=== PATIENT | male | born 1940 | race Caucasian/White ===

== ENCOUNTER 2019-03-19 16:53 | Inpatient (IN) | payer MEDICARE, MEDICAID ==
[~2019-03-19] VITALS: Ht 185.5 cm; Wt 78.5 kg
[2019-03-19 17:30] LABS: HEMATOCRIT 41 % (40-54); HEMOGLOBIN 13.7 G/DL (13.3-17.7); MEAN CORPUSCULAR HEMOGLOBIN 32 PG (25-34); MEAN CORPUSCULAR HGB CONC 33 G/DL (32-36); MEAN CORPUSCULAR VOLUME 95 FL (80-99); WHITE BLOOD COUNT 21.7 10^3/uL (4.3-11.0)
[2019-03-19 17:31] LABS: BASOPHILS % (AUTO) 0 % (0-10); EOSINOPHILS % (AUTO) 0 % (0-10); LYMPHOCYTES # (AUTO) 0.7 X 10^3 (1.0-4.0); LYMPHOCYTES % (AUTO) 3 % (12-44); MEAN PLATELET VOLUME 12.5 FL (7.4-10.4); MONOCYTES # (AUTO) 1.2 X 10^3 (0.0-1.0); MONOCYTES % (AUTO) 5 % (0-12); NEUTROPHILS # (AUTO) 19.6 X 10^3 (1.8-7.8); NEUTROPHILS % (AUTO) 90 % (42-75); PLATELET COUNT 214 10^3/uL (130-400); RED CELL DISTRIBUTION WIDTH 14.1 % (10.0-14.5)
[2019-03-19 17:39] LABS: BACTERIA,URINE LARGE /HPF; BILIRUBIN,URINE 2+ (NEGATIVE); CLARITY,URINE TURBID; COLOR,URINE BROWN; GLUCOSE, URINE (UA) NEGATIVE (NEGATIVE); KETONES,URINE 1+ (NEGATIVE); LEUKOCYTE ESTERASE ,URINE 2+ (NEGATIVE); NITRITE,URINE POSITIVE (NEGATIVE); PROTEIN,URINE 3+ (NEGATIVE); RBC,URINE TNTC /HPF; WBC,URINE TNTC /HPF
[2019-03-19 17:42] LABS: ALANINE AMINOTRANSFERASE 24 U/L (0-55); ALBUMIN 3.3 GM/DL (3.2-4.5); ALKALINE PHOSPHATASE 112 U/L (40-136); BILIRUBIN,TOTAL 1.1 MG/DL (0.1-1.0); BUN/CREATININE RATIO 32; CALCIUM 9.9 MG/DL (8.5-10.1); CARBON DIOXIDE 22 MMOL/L (21-32); CHLORIDE 106 MMOL/L (98-107); CREATININE SERUM 1.49 MG/DL (0.60-1.30); GFR ESTIMATED 46; GLUCOSE 166 MG/DL (70-105); POTASSIUM 4.7 MMOL/L (3.6-5.0); SODIUM 145 MMOL/L (135-145); TOTAL PROTEIN 7.4 GM/DL (6.4-8.2)
--- NOTE | 2019-03-19 17:43 | NUR ---
Received critical Lactic Acid to RN from lab, 2.41.
--- NOTE | 2019-03-19 17:52 | NUR ---
Reported Lactic Acid to Dr Rowell who is now available out of a procedure. Plan discussed.
--- NOTE | 2019-03-19 17:55 | NUR ---
Return from CT, plan blood culture #2 and meds.
[2019-03-19] MEDS ORDERED: CIPROFLOXACIN IV 400MG/200ML 200 ML IV ONE (18:00)
[2019-03-19] MEDS ORDERED: NS IV 1000 ML 1,000 ML IV SCH ×2 (18:00→19:00)
--- NOTE | 2019-03-19 18:00 | NUR ---
Peripheral IV start to R FA with 20 ga, Blood Culture set #2 drawn and handed off to Harsh from lab present in room. Explained blood culture draws to and contributed the WBC elevation with Lactic Acid elevation. Pt also with urinary infection. Pt continues to rest with eyes closed, occas moans or sighs, non-communication. has ordered IV fluids and Cipro.
--- NOTE | 2019-03-19 18:03 | Diagnostic Imaging Report ---
PROCEDURE: CT head without contrast. TECHNIQUE: Multiple contiguous axial images were obtained through the brain without the use of intravenous contrast. Auto Exposure Controls were utilized during the CT exam to meet ALARA standards for radiation dose reduction. INDICATION: Dementia. Altered mental status. COMPARISON: None. FINDINGS: No large acute territorial ischemia, mass, or hemorrhage. Chronic microvascular disease is seen in the periventricular and subcortical white matter. The ventricles and cortical sulci are prominent, consistent with generalized volume loss. The basilar cisterns are patent and unremarkable. The calvarium is intact. The visualized paranasal sinuses are clear. IMPRESSION: 1. No large acute territorial ischemia, mass, or hemorrhage. 2. Chronic microvascular disease. 3. Generalized volume loss. Dictated by: Dictated on workstation # [id number]
--- NOTE | 2019-03-19 18:05 | Diagnostic Imaging Report ---
PATIENT HISTORY: Altered mental status. Dementia.. TECHNIQUE: Single frontal view of the chest COMPARISON: None. FINDINGS: No focal consolidation is seen. Left basilar opacities are present. No large pleural effusion or pneumothorax is seen. The cardiomediastinal silhouette is enlarged. There is calcified aortic atherosclerotic plaque. No acute osseous abnormality is seen. IMPRESSION: 1. Cardiomegaly. No overt pulmonary edema. 2. Left basilar opacities, likely representing atelectasis and/or infection. Dictated by: Dictated on workstation # [id number]
[2019-03-19 18:10] LABS: BAND NEUTROPHILS 7 %; BASOPHILS % (MANUAL) 0 %; EOSINOPHILS % (MANUAL) 0 %; LYMPHOCYTES % (MANUAL) 3 %; MONOCYTES % (MANUAL) 1 %; NEUTROPHILS % (MANUAL) 89 %; RBC MORPH NORMAL
--- NOTE | 2019-03-19 18:31 | ED General ---
General Chief Complaint: Altered Mental Status Stated Complaint: BLOOD IN URINE History of Present Illness Date Seen by Provider: Mar 19, 2019 Time Seen by Provider: 18:26 Initial Comments 78-year-old male who is rather debilitated has dementia and is a DO NOT RESUSCITATE He lives in a small nursing facility called [facility] according to his reportedly he became less responsive than normal yesterday today it became obvious that he was really not responsive or communicating at all he was noted to have blood in his urine no known fever never any vomiting or diarrhea never any specific complaints never any appearance that he was in pain or sob Allergies and Home Medications Allergies Coded Allergies: No Known Drug Allergies (Unverified , 03/19/19) Patient Home Medication List Home Medication List Reviewed: Yes Review of Systems Review of Systems Constitutional: No fever Respiratory: no symptoms reported Cardiovascular: no symptoms reported Genitourinary: hematuria Musculoskeletal: no symptoms reported Physical Exam Vital Signs Capillary Refill : Height, Weight, BMI Height: '" Weight: lbs. oz. kg; BMI Method: General Appearance: No Apparent Distress, Other (pt is non-communicative does not follow commands) Eyes: Bilateral Eye PERRL HEENT: Other (mucosa dry) Neck: Supple Respiratory: Lungs Clear, Normal Breath Sounds Cardiovascular: Irregularly Irregular, Tachycardia Gastrointestinal: Normal Bowel Sounds, Non Tender Neurologic/Psychiatric: No Motor/Sensory Deficits, outside plant engineer II-XII Norm as Tested Focused Exam Lactate Level 03/19/19 17:04: Lactic Acid Level 2.41*H Lactic Acid Level Laboratory Tests Test 03/19/19 17:04 Lactic Acid Level 2.41 MMOL/L (0.50-2.00) *H Progress/Results/Core Measures Suspected Sepsis SIRS Temperature: Pulse: Respiratory Rate: Laboratory Tests 03/19/19 17:04: White Blood Count 21.7H Blood Pressure / Mean: 03/19/19 17:04: Lactic Acid Level 2.41*H Laboratory Tests 03/19/19 17:04: Creatinine 1.49H, Platelet Count 214, Total Bilirubin 1.1H Results/Orders Lab Results Laboratory Tests Test 03/19/19 17:04 03/19/19 17:18 Range/Units White Blood Count 21.7 H 4.3-11.0 10^3/uL Red Blood Count 4.33 L 4.35-5.85 10^6/uL Hemoglobin 13.7 13.3-17.7 G/DL Hematocrit 41 40-54 % Mean Corpuscular Volume 95 80-99 FL Mean Corpuscular Hemoglobin 32 25-34 PG Mean Corpuscular Hemoglobin Concent 33 32-36 G/DL Red Cell Distribution Width 14.1 10.0-14.5 % Platelet Count 214 130-400 10^3/uL Mean Platelet Volume 12.5 H 7.4-10.4 FL Neutrophils (%) (Auto) 90 H 42-75 % Lymphocytes (%) (Auto) 3 L 12-44 % Monocytes (%) (Auto) 5 0-12 % Eosinophils (%) (Auto) 0 0-10 % Basophils (%) (Auto) 0 0-10 % Neutrophils # (Auto) 19.6 H 1.8-7.8 X 10^3 Lymphocytes # (Auto) 0.7 L 1.0-4.0 X 10^3 Monocytes # (Auto) 1.2 H 0.0-1.0 X 10^3 Eosinophils # (Auto) 0.0 0.0-0.3 10^3/uL Basophils # (Auto) 0.0 0.0-0.1 10^3/uL Neutrophils % (Manual) 89 % Lymphocytes % (Manual) 3 % Monocytes % (Manual) 1 % Eosinophils % (Manual) 0 % Basophils % (Manual) 0 % Band Neutrophils 7 % Blood Morphology Comment NORMAL Sodium Level 145 135-145 MMOL/L Potassium Level 4.7 3.6-5.0 MMOL/L Chloride Level 106 98-107 MMOL/L Carbon Dioxide Level 22 21-32 MMOL/L Anion Gap 17 H 5-14 MMOL/L Blood Urea Nitrogen 47 H 7-18 MG/DL Creatinine 1.49 H 0.60-1.30 MG/DL Estimat Glomerular Filtration Rate 46 BUN/Creatinine Ratio 32 Glucose Level 166 H 70-105 MG/DL Lactic Acid Level 2.41 *H 0.50-2.00 MMOL/L Calcium Level 9.9 8.5-10.1 MG/DL Corrected Calcium 10.5 H 8.5-10.1 MG/DL Total Bilirubin 1.1 H 0.1-1.0 MG/DL Aspartate Amino Transf (AST/SGOT) 26 5-34 U/L Alanine Aminotransferase (ALT/SGPT) 24 0-55 U/L Alkaline Phosphatase 112 40-136 U/L Total Protein 7.4 6.4-8.2 GM/DL Albumin 3.3 3.2-4.5 GM/DL Urine Color BROWN H Urine Clarity TURBID Urine pH 7.0 5-9 Urine Specific [place] 1.020 1.016-1.022 Urine Protein 3+ H NEGATIVE Urine Glucose (UA) NEGATIVE NEGATIVE Urine Ketones 1+ H NEGATIVE Urine Nitrite POSITIVE H NEGATIVE Urine Bilirubin 2+ H NEGATIVE Urine Urobilinogen >=8.0 < = 1.0 MG/DL Urine Leukocyte Esterase 2+ H NEGATIVE Urine RBC (Auto) 3+ H NEGATIVE Urine RBC TNTC H /HPF Urine WBC TNTC H /HPF Urine Crystals NONE /LPF Urine Bacteria LARGE H /HPF Urine Casts NONE /LPF Urine Mucus NEGATIVE /LPF Urine Culture Indicated YES My Orders Orders - PHILOMENA SWANSON MD Iv Heplock-Insert (Order) (03/19/19 17:13) Cbc With Automated Diff (03/19/19 17:13) Blood Culture (03/19/19 17:13) Lactic Acid Analyzer (03/19/19 17:13) Comprehensive Metabolic Panel (03/19/19 17:13) Urinalysis (03/19/19 17:13) Straight Cath For Spec.-Adult (03/19/19 17:13) Ekg Tracing (03/19/19 17:13) Chest 1 View Ap/Pa Only (03/19/19 17:13) Valproic Acid (03/19/19 17:13) Ct Head Wo (03/19/19 17:13) Manual Differential (03/19/19 17:04) Urine Culture (03/19/19 17:18) Ns Iv 1000 Ml (Sodium Chloride 0.9%) (03/19/19 18:00) Ciprofloxacin Iv 400mg/200ml (Cipro Iv S (03/19/19 18:00) Blood Culture (03/19/19 18:00) Medications Given in ED Current Medications Medications Dose Ordered Sig/Cristina Route Start Time Stop Time Status Last Admin Dose Admin Ciprofloxacin/ Dextrose 200 ml @ 200 mls/hr ONCE ONCE IV 03/19/19 18:00 03/19/19 18:59 03/19/19 18:07 200 MLS/HR Vital Signs/I&O Capillary Refill : Progress Note : Progress Note Chest x-ray shows cardiomegaly and some basilar atelectasis CT head nothing acute hemoglobin is 13 7 white count 21,700 with 90 segs BUN 47 creatinine 1.49 glucose 166 lactate is 2.4 UA shows large amount of bacteria too numerous to count red cells and white cells 2+ leukocyte esterase and positive nitrite pt maintains a pulse rate in the 110s after IV fluids blood pressure 120/64 respirations 20s with a 97% on room air remains afebrile ECG Comment EKG shows atrial fib with a rate of about 120 not new for this patient he just takes baby aspirin daily No acute ST changes Departure Impression Primary Impression: Sepsis Qualified Codes: A41.9 - Sepsis, unspecified organism Additional Impressions: UTI (urinary tract infection) Qualified Codes: N39.0 - Urinary tract infection, site not specified; R31.9 - Hematuria, unspecified Atrial fibrillation, chronic Disposition: ADMITTED INPATIENT Condition: Stable Admissions Decision to Admit Reason: Admit from ER (General) Decision to Admit/Date: Mar 19, 2019 Time/Decision to Admit Time: 18:46 Departure-Patient Inst. Referrals: CACHORRO ARENAS DO (PCP/Family) Primary Care Physician PHILOMENA SWANSON MD Mar 19, 2019 18:31 POS
--- NOTE | 2019-03-19 18:58 | NUR ---
Called Tubing Tester Sue for bed assignment.
[2019-03-19] MEDS ORDERED: cefTRIAXone FOR IV USE 1,000 MG in WATER (STERILE) FOR INJECTION 10 ML IV ONE (19:00)
--- NOTE | 2019-03-19 19:15 | NUR ---
Report to Gely GARCIA.
[2019-03-19] MEDS ORDERED: NS IV 1000 ML 1,000 ML IV ONE (19:53)
--- NOTE | 2019-03-19 20:00 | NUR ---
RECEIVED REPORT FROM BHARAT GARCIA FROM ED. BHARAT REPORTED THAT EMS WAS GETTING READY TO TRANSPORT PT AT THAT TIME.
[2019-03-19 21:25] VITALS: BP 90/61
--- NOTE | 2019-03-19 21:25 | NUR ---
COLTEN COELLO admitted to room 426-1, with an admitting diagnosis of UROSEPSIS AND CHRONIS AFIB, on 03/19/19 from ED via [facility], accompanied by [facility].COLTEN COELLO introduced to surroundings, call light, bed controls, phone, TV, temperature control, lights, meal times, smoking policy, visitor policy, side rail policy, bathrooms and showers. Patient Rights given to patient in the handbook. COLTEN COELLO , TAYLER, verbalizes understanding that [facility] is not responsible for the loss or damage to any personal effects or valuables that are kept in the patients posession during their hospitalization. Patient and/or family were informed about the Rapid Response Team and its purpose.
[2019-03-19] MEDS: NS IV 1000 ML 1,000 ML IV SCH (21:45)
[2019-03-19 23:24] LABS: VALPROIC ACID < 2.0 UG/ML (50.0-100.0)
[2019-03-19] MEDS ORDERED: RT-ALBUTEROL SULF 2.5 MG/3 ML PRE-MIX VIAL INH PRN (23:45)
[2019-03-20 00:55] VITALS: BP 122/71
[2019-03-20 03:30] VITALS: BP 109/69
[2019-03-20 08:00] VITALS: BP 112/61
[2019-03-20] MEDS: NS IV 1000 ML 1,000 ML IV SCH ×2 (08:46→16:20)
[2019-03-20] MEDS ORDERED: ACETAMINOPHEN 325 MG TABLET PO PRN (10:45)
[2019-03-20] MEDS ORDERED: ANTACID SUSP 30 ML UDC (MYLANTA) PO PRN (10:45)
[2019-03-20] MEDS ORDERED: MILK OF MAGNESIA 400 MG/5 ML 30 ML UDC PO PRN (10:45)
[2019-03-20] MEDS ORDERED: LACTULOSE SYRUP 10GM/15ML (ENULOSE) 30ML UDC PO PRN (10:45)
[2019-03-20] MEDS ORDERED: BISACODYL 10 MG SUPP (DULCOLAX) PR PRN (10:45)
[2019-03-20] MEDS ORDERED: ONDANSETRON 4 MG/2 ML (SDV) Z0FRAN IV PRN (10:45)
[2019-03-20] MEDS ORDERED: POLYETHYLENE GLYCOL 17 GM (MIRALAX) PACK PO PRN (10:45)
[2019-03-20 11:11] LABS: HEMOGLOBIN 11.8 G/DL (13.3-17.7); MEAN PLATELET VOLUME 12.3 FL (7.4-10.4); RED CELL DISTRIBUTION WIDTH 14.7 % (10.0-14.5); WHITE BLOOD COUNT 17.2 10^3/uL (4.3-11.0)
--- NOTE | 2019-03-20 11:27 | History & Physical-Hospitalist ---
History of Present Illness HPI/Chief Complaint Pt is a 78yoCM with a PMH of advanced dementia who presented to the ER due to decreased responsiveness and bloody urine. He is unable to provide any history due to his dementia so all history is obtained from the records and his . She states that yesterday they noticed he was less responsive than his normal (oriented to person and mostly drowsy) and his urine was bloody and foul- smelling. This prompted them to taken to the emergency room where he was found to have a urinary tract infection with a leukocytosis of 24 and an elevated lactic acid. He was admitted for severe sepsis secondary to UTI. This morning he awakens only to physical stimuli and he nodded though I'm not sure if it was appropriate. He states he is still quite off from his baseline. Source: patient Date Seen 03/20/19 Time Seen by a Provider: 11:22 Attending Physician Liberty Galindo MD PCP Sean Bess DO Referring Physician Date of Admission Mar 19, 2019 at 7:37 pm Home Medications & Allergies Home Medications Reviewed patient Home Medication Reconciliation performed by pharmacy medication reconciliations sound effects technician and/or nursing. Patients Allergies have been reviewed. Allergies Allergies Coded Allergies No Known Drug Allergies (Wgjmblqehz04/9/19) Past Bwegoqs-Wkjhyv-Uxbhnt Hx Past Med/Social Hx: Reviewed Nursing Past Med/Soc Hx Patient Social History Marrital Status: Employed/Student: retired Alcohol Use: Denies Use Recreational Drug Use: No Smoking Status: Unknown if Ever Smoked Recent Foreign Travel: No (PT answered question) Contact w/other who traveled: No (PT answered question) Recent Hopitalizations: No Recent Infectious Disease Expo: No (PT answered question) Immunizations Up To Date Date of Pneumonia Vaccine: May 19, 2018 Date of Influenza Vaccine: Mar 11, 2019 Seasonal Allergies Seasonal Allergies: No Past Medical History Surgeries: Prostatectomy Cardiac: Atrial Fibrillation Neurological: Dementia Gastrointestinal: Chronic Constipation Endocrine: Hypothyroidsim Cancer: Prostate History of Blood Disorders: No Family History Reviewed Nursing Family Hx Review of Systems ROS-Unable to Obtain: clincal condition Constitutional: see HPI Physical Exam Physical Exam Vital Signs Vital Signs - First Documented 03/19/19 16:53 Temp 36.4 Pulse 115 Resp 24 B/P (MAP) 123/64 (83) Pulse Ox 96 O2 Delivery Room Air Capillary Refill : Less Than 3 Seconds Height, Weight, BMI Height: '" Weight: lbs. oz. kg; 21.65 BMI Method: General Appearance: No Apparent Distress, Chronically ill HEENT: Moist Mucous Membranes; No Scleral Icterus (L), No Scleral Icterus (R); Other Neck: Supple; No Thyromegaly Respiratory: Lungs Clear, No Accessory Muscle Use, No Respiratory Distress Cardiovascular: No Murmur, Irregularly Irregular Gastrointestinal: Normal Bowel Sounds, Non Tender, Soft Extremity: No Calf Tenderness, No Pedal Edema Neurologic/Psychiatric: Other (arouses to physical stimuli, otherwise quite sedate and sleepy soundly) Skin: Normal Color, Warm/Dry Results Results/Procedures Labs Laboratory Tests 03/19/19 17:04 03/20/19 11:05 Patient resulted labs reviewed. Imaging: Reviewed Imaging Films, Reviewed Imaging Report Assessment/Plan Admission Diagnosis Severe Sepsis Admission Status: Inpatient Order (span 2 midnights) Reason for Inpatient Admission: see admission dx Assessment and Plan Severe sepsis Present on admission UA consistent with UTI tachycardia with leukocytosis Lactic acid elevated on arrival Continue Rocephin Await cultures A-fib HTN tachycardiac on arrival but due to sepsis improved Resume home meds BP low to normotensive so hold home BP meds as to not bottom him out Advanced Dementia Baseline oriented to person only and states that is starting to go Palliative care consult Hypothyroidism Reported in history but no supplementation in fill history Will check TSH Diagnosis/Problems Diagnosis/Problems (1) Severe sepsis Status: Acute (2) Advanced dementia Status: Chronic (3) HTN (hypertension) Status: Chronic Qualifiers: Hypertension type: essential hypertension Qualified Codes: I10 - Essential (primary) hypertension (4) Atrial fibrillation, chronic Status: Chronic (5) UTI (urinary tract infection) Status: Acute Qualifiers: Urinary tract infection type: site unspecified Hematuria presence: with hematuria Qualified Codes: N39.0 - Urinary tract infection, site not specified; R31.9 - Hematuria, unspecified Clinical Quality Measures DVT/VTE Risk/Contraindication: Risk Factor Score Per Nursin RFS Level Per Nursing on Admit: 4+=Very High Copy Copies To 1: SEAN BESS KATELYN M MD Mar 20, 2019 11:26 am POS
[2019-03-20 11:44] LABS: BUN/CREATININE RATIO 41; CALCIUM 9.2 MG/DL (8.5-10.1); CARBON DIOXIDE 19 MMOL/L (21-32); CHLORIDE 115 MMOL/L (98-107); CREATININE SERUM 1.16 MG/DL (0.60-1.30); GFR ESTIMATED > 60; GLUCOSE 111 MG/DL (70-105); POTASSIUM 3.8 MMOL/L (3.6-5.0); SODIUM 146 MMOL/L (135-145)
[2019-03-20 12:00] VITALS: BP 127/81
[2019-03-20] MEDS: ENOXAPARIN 40 MG/0.4 ML (LOVENOX) SYR SQ SCH (12:37)
[2019-03-20 15:40] VITALS: BP 118/77
[2019-03-20] MEDS: 1/2 NS IV SOLUTION 1,000 ML IV SCH (19:00)
[2019-03-20 19:38] VITALS: BP 121/90
[2019-03-20] MEDS: MIRTAZAPINE 15 MG (REMERON) TAB PO SCH (21:04)
[2019-03-20] MEDS: risperiDONE 0.25 MG (RisperDAL) TAB PO SCH (21:04)
[2019-03-20] MEDS: cefTRIAXone FOR IV USE 1,000 MG in WATER (STERILE) FOR INJECTION 10 ML IV SCH (21:10)
[2019-03-21] VITALS (7 sets, daily range): BP systolic 106–122; BP diastolic 60–89
[2019-03-21] MEDS: NS IV 1000 ML 1,000 ML IV SCH (03:45)
[2019-03-21 05:51] LABS: HEMOGLOBIN 12.1 G/DL (13.3-17.7); MEAN PLATELET VOLUME 12.3 FL (7.4-10.4); RED CELL DISTRIBUTION WIDTH 14.9 % (10.0-14.5); WHITE BLOOD COUNT 13.3 10^3/uL (4.3-11.0)
[2019-03-21 06:16] LABS: CREATININE SERUM 1.22 MG/DL (0.60-1.30); POTASSIUM 3.7 MMOL/L (3.6-5.0)
[2019-03-21] MEDS: 1/2 NS IV SOLUTION 1,000 ML IV SCH ×2 (06:39→16:47)
[2019-03-21] MEDS: risperiDONE 0.25 MG (RisperDAL) TAB PO SCH ×3 (08:22→21:00)
--- NOTE | 2019-03-21 09:50 | Progress Note - Hospitalist ---
Subjective HPI/CC On Admission Date Seen by Provider: Mar 21, 2019 Time Seen by Provider: 09:20 Pt is a 78yoCM with a PMH of advanced dementia who presented to the ER due to decreased responsiveness and bloody urine. He is unable to provide any history due to his dementia so all history is obtained from the records and his . Sh e states that yesterday they noticed he was less responsive than his normal (oriented to person and mostly drowsy) and his urine was bloody and foul- smelling. This prompted them to taken to the emergency room where he was found to have a urinary tract infection with a leukocytosis of 24 and an elevated lactic acid. He was admitted for severe sepsis secondary to UTI. This morning he awakens only to physical stimuli and he nodded though I'm not sure if it was appropriate. He states he is still quite off from his baseline. Subjective/Events-last exam Pt dong about the same Palliative care consult PT and OT is not able to work with him due to the severity of his dementia Pt near comatose Do not resuscitate Came in with Urosepsis placed on empiric antibiotics and has a history of chronic AF Pt has a very severe prognosis and will likely be a hospice candidate at [place] Review of Systems Neurological: Confusion Focused Exam Lactate Level 03/19/19 17:04: Lactic Acid Level 2.41*H 03/19/19 19:04: Lactic Acid Level 2.60*H Objective Exam Vital Signs Vital Signs Date Time Temp Pulse Resp B/P (MAP) Pulse Ox O2 Delivery O2 Flow Rate FiO2 03/21/19 20:36 37.0 124 16 121/86 (98) 100 OxyMask 4.00 03/21/19 14:34 28 Capillary Refill : Less Than 3 Seconds General Appearance: No Apparent Distress, Chronically ill, Other (comatose) Respiratory: Decreased Breath Sounds Cardiovascular: Regular Rate, Rhythm Results/Procedures Lab Laboratory Tests 03/21/19 05:30 Patient resulted labs reviewed. Imaging: Reviewed Imaging Films, Reviewed Imaging Report Assessment/Plan Assessment and Plan Assess & Plan/Chief Complaint Assessment: Urosepsis AF Dementia Comatose Plan: Needs end of life care Diagnosis/Problems Diagnosis/Problems (1) Severe sepsis Status: Acute (2) Atrial fibrillation, chronic Status: Chronic (3) Advanced dementia Status: Chronic (4) HTN (hypertension) Status: Chronic Qualifiers: Hypertension type: essential hypertension Qualified Codes: I10 - Essential (primary) hypertension (5) UTI (urinary tract infection) Status: Acute Qualifiers: Urinary tract infection type: site unspecified Hematuria presence: with hematuria Qualified Codes: N39.0 - Urinary tract infection, site not specified; R31.9 - Hematuria, unspecified Clinical Quality Measures DVT/VTE Risk/Contraindication: Risk Factor Score Per Nursin RFS Level Per Nursing on Admit: 4+=Very High HAI CROWLEY DO Mar 21, 2019 09:49 POS
--- NOTE | 2019-03-21 10:10 | NUR ---
Gunite Mixer visit to offer supportive presence following notice of palliative consult. Pt was alert and pleasantly confused. He welcomed prayer and engaged warmly. His eyes remained closed throughout our visit.
--- NOTE | 2019-03-21 10:41 | Physical Therapy Evaluation ---
PT Evaluation-General Medical Diagnosis Admission Date Mar 19, 2019 at 19:37 Medical Diagnosis: UTI, urosepsis Onset Date: Mar 19, 2019 Therapy Diagnosis Therapy Diagnosis: weakness, debility Precautions Precautions/Isolations: Fall Prevention, Standard Precautions Weight Bear Status Right Lower Extremity: Right Weight Bearing/Tolerated Left Lower Extremity: Left Weight Bearing/Tolerated Referral Physician: Mateo Reason for Referral: Evaluation/Treatment Medical History Pertinent Medical History: Atrial Fib, Dementia Current History ER secondary to decreased responsiveness and [facility] Reviewed History: Yes Social History Home: Care Home ([facility]) Prior Prior Level of Function SCALE: Activities may be completed with or without assistive devices. 8-Qpediyedkz-csvoahc completes the activity by him/herself with no assistance from a helper. 5-Set-up or Clean-up Assistance-helper sets up or cleans up; patient completes activity. [place] assists only prior to or following the activity. 4-Supervision or Touching Assistance-helper provides verbal cues and/or touching/steadying and/or contact guard assistance as patient completes activity. Assistance may be provided throughout the activity or intermittently. 3-Partial/Moderate Assistance-helper does LESS THAN HALF the effort. [place] lifts, holds or supports trunk or limbs, but provides less than half the effort. 2-Substantial/Maximal Assistance-helper does MORE THAN HALF the effort. [place] lifts or holds trunk or limbs and provides more than half the effort. 6-Xfxkvrype-zoxzkf does ALL the effort. Patient does none of the effort to complete the activity. Or, the assistance of 2 or more helpers is required for the patient to complete the activity. If activity was not attempted, code reason: 7-Patient Refused. 9-Not Applicable-not attempted and the patient did not perform the activity before the current illness, exacerbation or injury. 10-Not Attempted due to Environmental Limitations-(lack of equipment, weather restraints, etc.). 88-Not Attempted due to Medical Conditions or Safety Concerns. Bed Mobility: 2 Transfers (B,C,W/C): 2 PT Evaluation-Current Subjective Patient agrees to PT at this time. Patient is fairly unresponsive and resistant to moving. Unable to provide much history. Objective Patient Orientation: Confused Problem Solving: Fair ROM/Strength Strength Lower Extremities Grossly 3/5 Integumentary/Posture Integumentary See nursing notes Bowel Incontinence: Yes Bladder Incontinence: Yes Posture Unable to assess Sensory Vision: Functional Hearing: Functional Transfers Roll Left to Right (QC): 1 Sit to Lying (QC): 1 Lying to Sitting/Side of Bed(Q: 1 Sit to Stand (QC): 1 Gait Does the Patient Walk?: No and Walking Goal NOT indicated Mode of Locomotion: Wheelchair Anticipated Mode of Locomotion: Wheelchair Balance Sitting Static: Fair Sitting Dynamic: Fair Standing Static: Poor Standing Dynamic: Poor Assessment/Needs Patient fairly unresponsive and resistant to PT treatment. Patient was completely dependent for all bed mobility and standing. Patient unable to follow directions and respond to skilled physical therapy services at this time. No PT indicated with RN and physician notified. Rehab Potential: Guarded PT Plan Treatment/Plan Treatment Plan: Discontinue PT Time/GCodes Time In: 915 Time Out: 930 Total Billed Treatment Time: 15 [facility] Mar 21, 2019 10:41 POS
[2019-03-21] MEDS: ENOXAPARIN 40 MG/0.4 ML (LOVENOX) SYR SQ SCH (11:57)
--- NOTE | 2019-03-21 14:01 | NUR ---
PALLIATIVE CARE/SOCIAL WORK consults received. Visited with patients regarding his severe dementia disease process as well as this acute illness. She reports progression of dementia with need for out of home care beginning in August of this year (currently at [facility]). He is no longer ambulating and is mostly in bed w frequent position changes due to development of pressure sores when sitting in wheelchair. He usually eats well but has had some weight change in the last months. Education on hospice was completed and will get her pamphlets. Suggested that she call and speak to his PCP Dr. Bess to see what his take is on hospice qualifications. Will supply her with the pamphlets of the 4 hospices that service [facility]. Will continue to follow and offer PC and SW support as able.
[2019-03-21] MEDS ORDERED: MIRT15TA6 PO (14:16)
[2019-03-21] MEDS ORDERED: CHOL100045 PO (14:16)
[2019-03-21] MEDS ORDERED: ASPI-983 PO (14:16)
[2019-03-21] MEDS ORDERED: FAMO20TA3 PO (14:16)
[2019-03-21] MEDS ORDERED: RISP0.253 PO (14:16)
[2019-03-21] MEDS ORDERED: LORA0.5T PO (14:16)
[2019-03-21] MEDS ORDERED: ACET325T49 PO (14:16)
[2019-03-21] MEDS ORDERED: POLY238P32 PO (14:16)
[2019-03-21] MEDS ORDERED: DIVA500T15 PO (14:16)
[2019-03-21] MEDS ORDERED: METO-333 PO (14:16)
[2019-03-21] MEDS ORDERED: HYDR12.5 PO (14:16)
[2019-03-21] MEDS ORDERED: VERA120T6 PO (14:16)
[2019-03-21] MEDS ORDERED: SENN-233 PO (14:16)
[2019-03-21] MEDS ORDERED: TERA2CAP4 PO (14:16)
--- NOTE | 2019-03-21 14:19 | Occupational Therapy Eval ---
OT Evaluation-General/PLF Medical Diagnosis Admission Date Mar 19, 2019 at 19:37 Medical Diagnosis: UTI, urosepsis Onset Date: Mar 19, 2019 Therapy Diagnosis Therapy Diagnosis: Decreased ADL function Precautions Precautions/Isolations: Fall Prevention, Standard Precautions Safety Interventions: Bed Exit Alarm, Reorient-PRN Referral Physician: Mateo Referral Reason: Activity Tolerance, Self Care, Evaluation/Treatment, Strengthening/ROM Medical History Pertinent Medical History: Atrial Fib, Dementia Additional Medical History PMHx: a fib, dementia, hypothyroidism, prostate ca, HTN Current History Sepsis/ UTI Reviewed History: Yes Social History Home: Custodial ([facility]) Entry Into Home: Level Entry Steps Into Home: 0 Steps Inside Home: 0 ADL-Prior Level of Function SCALE: Activities may be completed with or without assistive devices. 2-Ton[place]unbrll-zvwobin completes the activity by him/herself with no assistance from a helper. 5-Set-up or Clean-up Assistance-helper sets up or cleans up; patient completes activity. [place] assists only prior to or following the activity. 4-Supervision or Touching Assistance-helper provides verbal cues and/or touching/steadying and/or contact guard assistance as patient completes activity. Assistance may be provided throughout the activity or intermittently. 3-Partial/Moderate Assistance-helper does LESS THAN HALF the effort. [place] lifts, holds or supports trunk or limbs, but provides less than half the effort. 2-Substantial/Maximal Assistance-helper does MORE THAN HALF the effort. [place] lifts or holds trunk or limbs and provides more than half the effort. 7-Rnqqmtmxk-rfuakp does ALL the effort. Patient does none of the effort to c omplete the activity. Or, the assistance of 2 or more helpers is required for the patient to complete the activity. If activity was not attempted, code reason: 7-Patient Refused. 9-Not Applicable-not attempted and the patient did not perform the activity before the current illness, exacerbation or injury. 10-Not Attempted due to Environmental Limitations-(lack of equipment, weather restraints, etc.). 88-Not Attempted due to Medical Conditions or Safety Concerns. Self Care: Dependent Functional Cognition: Dependent DME/Equipment Comments Per pt's : pt dependent with all ADLs, pt enjoys speaking but most of the time does not respond with intelligible words. Occupation: retired Drive Self: No OT Current Status Subjective Pt seen in bed, nursing present. Pt does not respond to verbal, responds to light on and tactile touch. Pt does not state pain or agree to any pain when asked. Mental Status/Objective Patient Orientation: Eyes Open, Unresponsive, Mumbles Current Upper Extremity ROM WFL PROM BUE, does not respond to AROM commands Upper Extremity Coordination unable to test Upper Extremity Sensation unable to test Upper Extremity Strength unable to test ADL-Treatment Oral Hygiene (QC): 1 Shower/Bathe Self (QC): 1 Upper Body Dressing (QC): 1 Lower Body Dressing (QC): 1 On/Off Footwear (QC): 1 Toileting Hygiene (QC): 1 Toilet Transfer (QC): 1 Other Treatments Cold cloth utilized to increase pt's state of awareness, cold cloth placed on pt's face/ arms. Pt responds to vocals once eyes open. Pt states "Good, how are you," to greeting. Pt instructed to hold cloth and bring to face. Pt does not respond to verbal/ tactile cues. Pt's comes in close to start of session. Pt does not repond to following questions. Pt's states pt is TD with all ADLs, lives in [facility]. Pt's face and mouth wiped with cloth with TD. Pt's questions reasoning for therapy, educated on acute therapy process. Pt's educated on sensory stimulation to arouse pt. Pt and pt's left in room, pt in bed, call light in reach, all needs met. Education OT Patient Education: Purpose of tx/functional activities, Safety issues, Other (OT role) Teaching Recipient: Patient Teaching Methods: Demonstration, Discussion Response to Teaching: Unable to Return Demonstration, Unable to Comprehend, Reinforcement Needed OT Short Term Goals Short Term Goals 1=Demonstrate adherence to instructed precautions during ADL tasks. 2=Patient will verbalize/demonstrate understanding of assistive devices/modifications for ADL. 3=Patient will improve strength/tolerance for activity to enable patient to perform ADL's. OT Driver Retraining Instructor Goals Senior Living Goals 1=Demonstrate adherence to instructed precautions during ADL tasks. 2=Patient will verbalize/demonstrate understanding of assistive devices/modifications for ADL. 3=Patient will improve strength/tolerance for activity to enable patient to perform ADL's. OT Education/Plan Problem List/Assessment Assessment: No Skilled OT Needs ID'd Discharge Recommendations Plan/Recommendations: Discontinue OT Therapy Discharge Recommendati: 24 Hour Supervision Equpiment Recommendations-D/C: None Treatment Plan/Plan of Care Treatment,Training & Education: Yes No OT services rendered due to pt's dementia and dependent PLOF. Time/GCodes Start Time: 11:50 Stop Time: 12:05 Total Time Billed (hr/min): 15 Billed Treatment Time 1, EVM (15) CATE CACERES OTR Mar 21, 2019 14:19 POS
[2019-03-21] MEDS ORDERED: [UNRECOGNIZED DRUG - OTHER] PO (14:20)
[2019-03-21] MEDS ORDERED: MELA1TAB15 PO (14:20)
--- NOTE | 2019-03-21 14:20 | NUR ---
RD ASSESSMENT PMHx: dementia; chronic constipation PT INTERACTION: Pt was asleep during consult for MST score. Note pt's was present at bedside. states pt's current appetite is pretty good. states pt follows regular diet at the facility where he resides. states pt sometimes pockets food to either spit out or digest later. states pt has had no recent issues with n/v/c/d at this time. Note last BM was 03/21 and pt currently on bowel regimen of miralax, bisacodyl, per chart review. states pt has been losing wt, but unsure of the amount lost. Note unable to determine recent wt hx, per chart review. Given pt's appetite, pt is not at risk for malnutrition per ASPEN guidelines. ABNORMAL NUTRITION-RELATED LAB VALUES: Na 148 (H); Cl 117 (H); BUN 44 (H) Est. kcal needs: 0918-2702 kcal (25-30 kcal/kg) Est. Pro needs: 78-94 g Pro (1.0-1.2 g Pro/kg) PES STATEMENT: Inadequate oral intake (NI-2.1) related to NPO status as evidenced by pt () interview INTERVENTION: Continue with NPO status. Advance diet to Clear Liquid, as medically able and tolerated. MONITOR/EVALUATE: PO Intake; Plan of Care; Hydration Status; Weight Status; Lab Values Pati Nolan, MS, RD, LD
--- NOTE | 2019-03-21 14:22 | NUR ---
ENTERED THE MED REC USING THE [facility] SHEET. WHEN I INQUIRED WITH [facility] TO FIND OUT IF THEY HAD A MAR THEY COULD SEND, THEY DID NOT AND SAID THE DRUG REGIMEN SHEET WAS ALL THEY HAD.
[2019-03-21] MEDS: cefTRIAXone FOR IV USE 1,000 MG in WATER (STERILE) FOR INJECTION 10 ML IV SCH (19:00)
[2019-03-21] MEDS: RT-ALBUTEROL SULF 2.5 MG/3 ML PRE-MIX VIAL INH SCH (19:46)
[2019-03-21] MEDS: MIRTAZAPINE 15 MG (REMERON) TAB PO SCH (21:00)
[2019-03-22] VITALS: BP 121/84
[2019-03-22] MEDS: RT-ALBUTEROL SULF 2.5 MG/3 ML PRE-MIX VIAL INH SCH ×4 (02:09→20:41)
[2019-03-22 04:00] VITALS: BP 105/77
[2019-03-22] MEDS: 1/2 NS IV SOLUTION 1,000 ML IV SCH ×2 (05:00→14:59)
[2019-03-22 08:00] VITALS: BP 114/77
--- NOTE | 2019-03-22 09:49 | Progress Note - Hospitalist ---
Subjective HPI/CC On Admission Date Seen by Provider: Mar 22, 2019 Time Seen by Provider: 09:30 Pt is a 78yoCM with a PMH of advanced dementia who presented to the ER due to decreased responsiveness and bloody urine. He is unable to provide any history due to his dementia so all history is obtained from the records and his . She states that yesterday they noticed he was less responsive than his normal (oriented to person and mostly drowsy) and his urine was bloody and foul- smelling. This prompted them to taken to the emergency room where he was found to have a urinary tract infection with a leukocytosis of 24 and an elevated lactic acid. He was admitted for severe sepsis secondary to UTI. This morning he awakens only to physical stimuli and he nodded though I'm not sure if it was appropriate. He states he is still quite off from his baseline. Subjective/Events-last exam Will initiate speech therapy evaluation for a swallow evaluation since he remains NPO. C-Diff will be sent off because he is having a lot of loose stools. Palliative care consult for him. Pt very demented and no recoverability due to the severity of his memory loss. Review of Systems Gastrointestinal: Diarrhea Neurological: Confusion Focused Exam Lactate Level Objective Exam Vital Signs Vital Signs Date Time Temp Pulse Resp B/P (MAP) Pulse Ox O2 Delivery O2 Flow Rate FiO2 03/22/19 16:00 36.6 108 20 136/80 (98) 96 Room Air 03/22/19 09:51 2.50 03/21/19 14:34 28 Capillary Refill : Less Than 3 Seconds General Appearance: No Apparent Distress, Chronically ill, Thin Respiratory: Lungs Clear Cardiovascular: Irregularly Irregular Neurologic/Psychiatric: Disoriented Results/Procedures Lab Patient resulted labs reviewed. Imaging: Reviewed Imaging Films, Reviewed Imaging Report Assessment/Plan Assessment and Plan Assess & Plan/Chief Complaint Assessment: Urosepsis AF Dementia Comatose C diff? Plan: Needs end of life care Vanc PO Diagnosis/Problems Diagnosis/Problems (1) Severe sepsis Status: Acute (2) Atrial fibrillation, chronic Status: Chronic (3) Advanced dementia Status: Chronic (4) HTN (hypertension) Status: Chronic Qualifiers: Hypertension type: essential hypertension Qualified Codes: I10 - Essential (primary) hypertension (5) UTI (urinary tract infection) Status: Acute Qualifiers: Urinary tract infection type: site unspecified Hematuria presence: with hematuria Qualified Codes: N39.0 - Urinary tract infection, site not specified; R31.9 - Hematuria, unspecified Clinical Quality Measures DVT/VTE Risk/Contraindication: Risk Factor Score Per Nursin RFS Level Per Nursing on Admit: 4+=Very High HAI CROWLEY DO Mar 22, 2019 09:49 POS
[2019-03-22] MEDS: risperiDONE 0.25 MG (RisperDAL) TAB PO SCH ×2 (10:53→21:30)
[2019-03-22] MEDS: ENOXAPARIN 40 MG/0.4 ML (LOVENOX) SYR SQ SCH (11:39)
[2019-03-22 12:00] VITALS: BP 110/75
--- NOTE | 2019-03-22 12:23 | ST Dysphagia Evaluation ---
Speech Evaluation-General Medical Diagnosis UTI, urosepsis Onset Date: Mar 19, 2019 Therapy Diagnosis Therapy Diagnosis: Oropharyngeal Dysphagia Precautions Precautions: Aspiration Referral Referring Physician: Dr. Galindo Medical History Pertinent Medical History: Atrial Fib, Dementia Reviewed History: Yes Speech PLF/Current-Dysphagia Prior Level of Function Patient lived at home with his . He was dependent for his daily needs due to dementia. Cognitive Status Patient Orientation: Person, Confused Oral Motor Skills Dentition: Natural, Tumbled, Stained Denture Type: Full- Upper Ability to Follow Directions: Fair Oral Expression Ability: Moderate Impairment Voice Voice Phonatory-Based Quality: Weak Voice Loudness: Moderately Soft/Quiet Face Facial Symmetry: Symmetrical Oral-Facial Assessment Oral-Facial Dentition: Normal Labial Seal Description: Weak, Poor Coordination Lingual Protrusion: Normal Lingual ROM: Normal Lingual Strength: Normal Pharynx Velopharyngeal Move.: Normal Volitional Dry Swallow: Yes Dysphagia Evaluation Consistencies Presented: Thin Liquid, Mechanical Soft, Pureed Oral Phase: Reduced Oral Transit Mechanical soft Dietary Recommendations: Mechanical Soft Swallowing Precautions: Alternate Liquids/Solids, Decreased Bolus 1/2 Tsp, Liquids from Straw, Oral Supervision Caregiver, Small Bites and Sips, Sitting Upright 90 Degrees Dysphagia Evaluation Summary Patient is a 78 year old male who was admitted to the hospital due to UTI. Patient has dementia and was alert to self. Patient is responsive to name. Alejandrina ent's at bedside during the Bedside Dysphagia Evaluation. She states he eats soft food at home with his meats ground up. Patient was given thin liquids via spoon 1/2 tsp x2 and small sips via straw x2 without difficulty. The patient was presented puree at 1/2 tsp x2 and mechanical soft at 1/2 tsp x1 without s/s of aspiration noted. Patient has mild delay with swallow onset of the mechanical soft. Patient has good oral ROM for trials given. Patient will be on a Dysphagia II with thin liquids. This information was provided to nurse, Wandy and written on the white board in his room. Education provided to his . Barriers to Learning Patient has dementia Speech Short Term Goals Short Term Goals Short Term Goals 1) Patient will tolerate least restrictive diet level without s/s of aspiration at 90% or greater. 2) Patient/caregiver will utilize compensatory strategies for safest oral intake at 90% or greater. Speech Jail Goals Redrawer Goals Patient will maintain adequate nutrition/hydration via safe effective swallow function. Speech-Plan Patient/Family Goals Patient/Family Goals: Patient's plans on him returning home upon discharge. Treatment Plan Speech Therapy Treatment Plan: Continue Plan of Care Patient will receive skilled ST for dysphagia. Treatment Duration: Mar 25, 2019 Frequency: 2 times per week Estimated Hrs Per Day: .25 hour per day Rehab Potential: Fair Barriers to Learning: Patient has dementia Pt/Family Agrees to Plan: Yes Safety Risks/Education Teaching Recipient: Patient, Significant Other Teaching Methods: Demonstration, Discussion Response to Teaching: Return Demonstration, Reinforcement Needed Education Topics Provided: Safety of oral intake and diet level Time Speech Therapy Time In: 11:05 Speech Therapy Time Out: 11:20 Total Billed Time: 15 Billed Treatment Time 1RACHELLE BETH[address] ST Mar 22, 2019 12:23 POS
[2019-03-22 16:00] VITALS: BP 136/80
--- NOTE | 2019-03-22 16:10 | NUR ---
MICROBIOLOGY CALLED NURSE WITH INDETERMINANT C DIFF RESULTS, SPECIMEN BEING SENT OUT, PATIENT IS IN CONTACT ISOLATION WAITING RESULTS,
[2019-03-22 20:00] VITALS: BP 130/84
[2019-03-22] MEDS: cefTRIAXone FOR IV USE 1,000 MG in WATER (STERILE) FOR INJECTION 10 ML IV SCH (21:16)
[2019-03-22] MEDS: MIRTAZAPINE 15 MG (REMERON) TAB PO SCH (21:30)
[2019-03-23] VITALS: BP 124/73
[2019-03-23] MEDS: VANCOMYCIN ORAL 250 MG/5 ML 120 ML PO SCH ×8 (00:09→18:33)
[2019-03-23] MEDS: 1/2 NS IV SOLUTION 1,000 ML IV SCH ×4 (01:05→21:20)
[2019-03-23] MEDS: RT-ALBUTEROL SULF 2.5 MG/3 ML PRE-MIX VIAL INH SCH ×4 (02:45→21:44)
[2019-03-23 03:39] VITALS: BP 108/78
[2019-03-23 05:21] LABS: BASOPHILS % (AUTO) 0 % (0-10); EOSINOPHILS # (AUTO) 0.2 10^3/uL (0.0-0.3); EOSINOPHILS % (AUTO) 2 % (0-10); HEMATOCRIT 37 % (40-54); HEMOGLOBIN 11.9 G/DL (13.3-17.7); LYMPHOCYTES % (AUTO) 11 % (12-44); MEAN CORPUSCULAR HEMOGLOBIN 31 PG (25-34); MEAN CORPUSCULAR HGB CONC 32 G/DL (32-36); MEAN CORPUSCULAR VOLUME 97 FL (80-99); MONOCYTES # (AUTO) 0.7 X 10^3 (0.0-1.0); MONOCYTES % (AUTO) 7 % (0-12); NEUTROPHILS # (AUTO) 7.4 X 10^3 (1.8-7.8); NEUTROPHILS % (AUTO) 80 % (42-75); PLATELET COUNT 227 10^3/uL (130-400); RED CELL DISTRIBUTION WIDTH 14.6 % (10.0-14.5); WHITE BLOOD COUNT 9.3 10^3/uL (4.3-11.0)
[2019-03-23 05:42] LABS: ALANINE AMINOTRANSFERASE 29 U/L (0-55); ALBUMIN 2.5 GM/DL (3.2-4.5); ALKALINE PHOSPHATASE 119 U/L (40-136); BUN/CREATININE RATIO 34; CALCIUM 8.1 MG/DL (8.5-10.1); CARBON DIOXIDE 20 MMOL/L (21-32); CHLORIDE 117 MMOL/L (98-107); CREATININE SERUM 1.04 MG/DL (0.60-1.30); GFR ESTIMATED > 60; GLUCOSE 102 MG/DL (70-105); POTASSIUM 3.8 MMOL/L (3.6-5.0); SODIUM 145 MMOL/L (135-145); TOTAL PROTEIN 5.4 GM/DL (6.4-8.2)
[2019-03-23] MEDS ORDERED: VANCOMYCIN ORAL SUSPENSION 60 ML BOTTLE PO SCH (07:00)
[2019-03-23 08:00] VITALS: BP 115/76
[2019-03-23] MEDS: risperiDONE 0.25 MG (RisperDAL) TAB PO SCH ×2 (08:15→21:20)
--- NOTE | 2019-03-23 11:08 | NUR ---
DISCHARGE PLANNING/PALLIATIVE CARE: This RN has checked on patient, he is having numerous loose stools and is CDIFF indeterminant. He is in isolation until send out is resulted. I have called to speak to a care support representative at [facility] where he resides. I m to speak to Ghazala Oneal, message left for her to call me Addendum: 03/23/19 at 1155 by LIZZIE CABEZAS RN Ghazala Oneal from [facility] did call back and we discussed his course of treatment. Made her aware that he has pending results for CDIFF and is now in isolation and [facility]. Explained to her that I had discussed hospice with . She was aware and will talk to Shahriar. Addendum: 03/23/19 at 1156 by LIZZIE CABEZAS RN additionally. SHe would like to know the results of the send out before she agrees to accept him back due to his shared room.
--- NOTE | 2019-03-23 11:44 | Progress Note - Hospitalist ---
Subjective HPI/CC On Admission Date Seen by Provider: Mar 23, 2019 Time Seen by Provider: 10:00 Pt is a 78yoCM with a PMH of advanced dementia who presented to the ER due to decreased responsiveness and bloody urine. He is unable to provide any history due to his dementia so all history is obtained from the records and his . Sh vira states that yesterday they noticed he was less responsive than his normal (oriented to person and mostly drowsy) and his urine was bloody and foul- smelling. This prompted them to taken to the emergency room where he was found to have a urinary tract infection with a leukocytosis of 24 and an elevated lactic acid. He was admitted for severe sepsis secondary to UTI. This morning he awakens only to physical stimuli and he nodded though I'm not sure if it was appropriate. He states he is still quite off from his baseline. Subjective/Events-last exam Patient now with C. difficile colitis We'll complete Rocephin in the next 2 days Patient; toes Hospice discussed with family per palliative care nurse Overall poor prognosis Review of Systems Gastrointestinal: Diarrhea Neurological: Confusion Objective Exam Vital Signs Vital Signs Date Time Temp Pulse Resp B/P (MAP) Pulse Ox O2 Delivery O2 Flow Rate FiO2 03/23/19 09:48 96 Room Air 03/23/19 08:00 36.4 68 18 115/76 (89) 03/22/19 09:51 2.50 03/21/19 14:34 28 Capillary Refill : Less Than 3 Seconds General Appearance: No Apparent Distress, WD/WN, Chronically ill, Other (comatose) Respiratory: Lungs Clear Cardiovascular: Regular Rate, Rhythm Results/Procedures Lab Laboratory Tests 03/23/19 05:10 Patient resulted labs reviewed. Imaging: Reviewed Imaging Films, Reviewed Imaging Report Assessment/Plan Assessment and Plan Assess & Plan/Chief Complaint Assessment: Urosepsis AF Dementia Comatose C diff Plan: Needs end of life care Vanc PO Diagnosis/Problems Diagnosis/Problems (1) Severe sepsis Status: Acute (2) Atrial fibrillation, chronic Status: Chronic (3) Advanced dementia Status: Chronic (4) HTN (hypertension) Status: Chronic Qualifiers: Hypertension type: essential hypertension Qualified Codes: I10 - Essential (primary) hypertension (5) UTI (urinary tract infection) Status: Acute Qualifiers: Urinary tract infection type: site unspecified Hematuria presence: with hematuria Qualified Codes: N39.0 - Urinary tract infection, site not specified; R31.9 - Hematuria, unspecified Clinical Quality Measures DVT/VTE Risk/Contraindication: Risk Factor Score Per Nursin RFS Level Per Nursing on Admit: 4+=Very High HAI CROWLEY DO Mar 23, 2019 11:44 POS
[2019-03-23 12:00] VITALS: BP 111/85
[2019-03-23] MEDS: ENOXAPARIN 40 MG/0.4 ML (LOVENOX) SYR SQ SCH (12:23)
[2019-03-23 16:06] VITALS: BP 104/74
[2019-03-23] MEDS: cefTRIAXone FOR IV USE 1,000 MG in WATER (STERILE) FOR INJECTION 10 ML IV SCH (18:34)
[2019-03-23 20:14] VITALS: BP 123/81
[2019-03-23] MEDS: MIRTAZAPINE 15 MG (REMERON) TAB PO SCH (21:20)
[2019-03-24] VITALS: BP 110/70
[2019-03-24] MEDS: VANCOMYCIN ORAL 250 MG/5 ML 120 ML PO SCH ×10 (00:17→23:39)
[2019-03-24] MEDS: RT-ALBUTEROL SULF 2.5 MG/3 ML PRE-MIX VIAL INH SCH ×2 (02:03→09:46)
[2019-03-24 04:00] VITALS: BP 102/74
[2019-03-24] MEDS: 1/2 NS IV SOLUTION 1,000 ML IV SCH (07:31)
[2019-03-24 08:00] VITALS: BP 107/69
[2019-03-24] MEDS ORDERED: VANC125S PO (08:47)
--- NOTE | 2019-03-24 08:47 | Discharge Summary ---
Discharge Summary Hospital Course Was the Problem List Reviewed?: Yes Problems/Dx: (1) Severe sepsis Status: Acute (2) Atrial fibrillation, chronic Status: Chronic (3) Advanced dementia Status: Chronic (4) HTN (hypertension) Status: Chronic Qualifiers: Qualified Codes: I10 - Essential (primary) hypertension (5) UTI (urinary tract infection) Status: Acute Qualifiers: Qualified Codes: N39.0 - Urinary tract infection, site not specified; R31.9 - Hematuria, unspecified (6) C. difficile colitis Hospital Course Date of Admission: Mar 19, 2019 at 19:37 Admission Diagnosis : Family Physician/Provider: Sean Bess DO Date of Discharge: 03/24/19 Discharge Diagnosis: Severe sepsis, urosepsis, advanced dementia, c diff colitis Hospital Course: Hospital course: Pt had an uneventful but long hospital course for six days with a history of a severe dementia his prognosis was poor when he was admitted and even worse before discharge who was admitted for severe sepsis due to UTI Proteus was on urine culture, Pt treated with Rocephin for a full five days but he did suffer from diarrhea that was checked and it was confirmed C-Diff, Pt was placed on Vancomycin PO, Rocephin was discontinued after the treatment was completed and he will be discharged back to the correction with hopes that the family will sign him up for hospice due to the severity of dementia and lack of recovery potential. Labs and Pending Lab Test: Microbiology 03/19/19 Blood Culture - Preliminary, Resulted No growth 03/22/19 C. difficile DNA Amplification - Final, Complete 03/22/19 C. difficile GDH Antigen & Toxins - Final, Complete 03/19/19 Urine Culture - Final, Complete Proteus mirabilis Home Meds Active Reported Melatonin 5 mg Tablet (Melatonin/Pyridoxine) 1 Each Tablet 1 Each PO HS [Therapym Beta Carot] Tab 1 PO DAILY Lorazepam 0.5 Mg Tablet 0.5 Mg PO BID PRN Vitamin D (Cholecalciferol (Vitamin D3)) 1,000 Unit Tablet 2,000 Units PO DAILY [id number] (Polyethylene Glycol 3350) 238 Gm Powder 17 Gm PO DAILY Acid Ticket Sales Agent (FAMOTIDINE) (Famotidine) 20 Mg Tablet 20 Mg PO HS Metoprolol Tartrate 25 Mg Tablet 12.5 Mg PO BID TAKES HALF OF A 25MG TAB TO EQUAL 12.5MG TWICE DAILY Senna Plus Tablet (Sennosides/Docusate Sodium) 1 Each Tablet 1 Tab PO BID Mirtazapine 15 Mg Tablet 15 Mg PO HS Divalproex Sodium ER (Divalproex Sodium) 500 Mg Tab.er.24h 500 Mg PO HS Risperidone 0.25 Mg Tablet 0.25 Mg PO TID Hydrochlorothiazide 12.5 Mg Capsule 12.5 Mg PO DAILY Terazosin HCl 2 Mg Capsule 2 Mg PO HS Aspirin EC (Aspirin) 81 Mg Tablet.dr 81 Mg PO DAILY Acetaminophen 325 Mg Tablet 650 Mg PO Q8H Verapamil HCl 120 Mg Tablet 60 Mg PO BID Assessment/Pt Instructions PCP 1 week Discharge Planning: <30 minutes discharge planning Discharge Instructions Discharge Diet: Other Diet Activity as Tolerated: Yes Discharge Physical Examination Vital Signs Vital Signs Date Time Temp Pulse Resp B/P (MAP) Pulse Ox O2 Delivery O2 Flow Rate FiO2 03/24/19 08:00 36.0 58 18 107/69 (82) 93 Room Air 03/22/19 09:51 2.50 03/21/19 14:34 28 General Appearance: No Apparent Distress Cardiovascular: Regular Rate, Rhythm Neurologic/Psychiatric: Disoriented Allergies: Coded Allergies: No Known Drug Allergies (Unverified , 03/19/19) Discharge Summary Date of Admission Mar 19, 2019 at 19:37 Date of Discharge Discharge Date: Mar 24, 2019 Admission Diagnosis Severe Sepsis Discharge Diagnosis Assessment: Urosepsis AF Dementia Comatose C diff Plan: Needs end of life care Vanc PO (1) Severe sepsis Status: Acute (2) Atrial fibrillation, chronic Status: Chronic (3) Advanced dementia Status: Chronic (4) HTN (hypertension) Status: Chronic Qualifiers: Qualified Codes: I10 - Essential (primary) hypertension (5) UTI (urinary tract infection) Status: Acute Qualifiers: Qualified Codes: N39.0 - Urinary tract infection, site not specified; R31.9 - Hematuria, unspecified Clinical Quality Measures DVT/VTE Risk/Contraindication: Risk Factor Score Per Nursin RFS Level Per Nursing on Admit: 4+=Very High HAI CROWLEY DO Mar 24, 2019 08:47 POS
[2019-03-24] MEDS: risperiDONE 0.25 MG (RisperDAL) TAB PO SCH ×2 (08:51→19:56)
[2019-03-24] MEDS ORDERED: RELABEL FOR HOME USE MC SCH (09:00)
[2019-03-24 12:00] VITALS: BP 103/65
[2019-03-24] MEDS: ENOXAPARIN 40 MG/0.4 ML (LOVENOX) SYR SQ SCH (12:10)
--- NOTE | 2019-03-24 12:24 | NUR ---
Swing Bed Note: Request to look at patient for meeting swing bed criteria. Chart reviewed et their is no skilled interventions at this time. Patient does not meet for swing bed.
[2019-03-24 14:24] VITALS: BP 103/65
[2019-03-24 16:00] VITALS: BP 100/57
[2019-03-24] MEDS: MIRTAZAPINE 15 MG (REMERON) TAB PO SCH (19:55)
[2019-03-25 00:15] VITALS: BP 122/85
[2019-03-25] MEDS: VANCOMYCIN ORAL 250 MG/5 ML 120 ML PO SCH ×6 (05:59→18:21)
[2019-03-25 08:00] VITALS: BP 126/89
[2019-03-25] MEDS: risperiDONE 0.25 MG (RisperDAL) TAB PO SCH ×2 (08:44→21:48)
--- NOTE | 2019-03-25 09:31 | Progress Note - Hospitalist ---
Subjective HPI/CC On Admission Date Seen by Provider: Mar 25, 2019 Time Seen by Provider: 08:30 Pt is a 78yoCM with a PMH of advanced dementia who presented to the ER due to decreased responsiveness and bloody urine. He is unable to provide any history due to his dementia so all history is obtained from the records and his . She states that yesterday they noticed he was less responsive than his normal (oriented to person and mostly drowsy) and his urine was bloody and foul- smelling. This prompted them to taken to the emergency room where he was found to have a urinary tract infection with a leukocytosis of 24 and an elevated lactic acid. He was admitted for severe sepsis secondary to UTI. This morning he awakens only to physical stimuli and he nodded though I'm not sure if it was appropriate. He states he is still quite off from his baseline. Objective Exam Vital Signs Vital Signs Date Time Temp Pulse Resp B/P (MAP) Pulse Ox O2 Delivery O2 Flow Rate FiO2 03/25/19 16:13 36.7 74 18 116/80 (92) 96 Room Air 03/24/19 14:24 21 03/24/19 08:00 2.50 Capillary Refill : Less Than 3 Seconds General Appearance: No Apparent Distress, WD/WN, Chronically ill Respiratory: Lungs Clear Cardiovascular: Regular Rate, Rhythm Neurologic/Psychiatric: Alert, Disoriented Results/Procedures Lab Patient resulted labs reviewed. Imaging: Reviewed Imaging Films, Reviewed Imaging Report Assessment/Plan Assessment and Plan Assess & Plan/Chief Complaint Assessment: Urosepsis AF Dementia Comatose C diff Plan: Needs end of life care Vanc PO Needs to have no diarrhea 48 hours before moving back to [facility] Diagnosis/Problems Diagnosis/Problems (1) Severe sepsis Status: Acute (2) Atrial fibrillation, chronic Status: Chronic (3) Advanced dementia Status: Chronic (4) HTN (hypertension) Status: Chronic Qualifiers: Hypertension type: essential hypertension Qualified Codes: I10 - Essential (primary) hypertension (5) UTI (urinary tract infection) Status: Acute Qualifiers: Urinary tract infection type: site unspecified Hematuria presence: with hematuria Qualified Codes: N39.0 - Urinary tract infection, site not specified; R31.9 - Hematuria, unspecified (6) C. difficile colitis Clinical Quality Measures DVT/VTE Risk/Contraindication: Risk Factor Score Per Nursin RFS Level Per Nursing on Admit: 4+=Very High HAI CROWLEY DO Mar 25, 2019 09:31 POS
[2019-03-25] MEDS: ENOXAPARIN 40 MG/0.4 ML (LOVENOX) SYR SQ SCH (12:07)
--- NOTE | 2019-03-25 13:40 | NUR ---
This RN is in room to check on patient. His lunch tray is on BST and I assisted him with his lunch. On his plate was a pureed variety of black beens, chicken w gravy, carrots and nectar thick liquid of some sort and orange sherbet. He was happy to eat lunch and did well with the pureed selection except that he does pocket food. I did give him a drink after every couple of bites which seemed to help his pocketing. Patient kept asking for water. He had an almost empty jug on his table which was not thickened. Enquired about this as the diet tray had the nectar thick fluids. I ave him a small drink of the unthickened liquid which he was able to draw through the straw and swallow without choking. He ate maybe 25% of his meal with assistance from this RN. During the visit he was very verbal but nonsensical. He could not really answer a direct question except in reation to wanting another bite.
[2019-03-25 16:13] VITALS: BP 116/80
[2019-03-25] MEDS: MIRTAZAPINE 15 MG (REMERON) TAB PO SCH (21:48)
[2019-03-26] VITALS: BP 111/76
[2019-03-26] MEDS: VANCOMYCIN ORAL 250 MG/5 ML 120 ML PO SCH ×8 (00:09→17:07)
[2019-03-26 08:00] VITALS: BP 108/65
[2019-03-26] MEDS: risperiDONE 0.25 MG (RisperDAL) TAB PO SCH ×2 (10:00→19:59)
--- NOTE | 2019-03-26 10:40 | Progress Note - Hospitalist ---
Subjective HPI/CC On Admission Date Seen by Provider: Mar 26, 2019 Time Seen by Provider: 10:00 decreased responsiveness and bloody urine Subjective/Events-last exam He is awake and alert. He is disoriented. He denies chest pain. He denies shortness of breath. He denies abdominal pain, nausea, vomiting, and diarrhea. Objective Exam Vital Signs Vital Signs Date Time Temp Pulse Resp B/P (MAP) Pulse Ox O2 Delivery O2 Flow Rate FiO2 03/26/19 09:24 Room Air 03/26/19 00:00 36.9 62 17 111/76 (88) 94 03/24/19 14:24 21 03/24/19 08:00 2.50 Capillary Refill : Less Than 3 Seconds General Appearance: No Apparent Distress, Chronically ill, Thin Respiratory: Lungs Clear, Normal Breath Sounds, No Respiratory Distress Cardiovascular: Regular Rate, Rhythm, No Edema, No Murmur Gastrointestinal: Normal Bowel Sounds, Non Tender, Soft Extremity: Normal Inspection, Non Tender, No Pedal Edema Neurologic/Psychiatric: Alert, Disoriented Skin: Normal Color, Warm/Dry Results/Procedures Lab Patient resulted labs reviewed. Assessment/Plan Assessment and Plan Assess & Plan/Chief Complaint C diff infection -Diarrhea resolved -Continue oral vancomycin -Plan to discharge to [facility] on Thursday Dementia -High risk for delirium -Reorient as needed Proteus UTI, resolved -Received antibiotic course DVT Prophylaxis: Lovenox Diagnosis/Problems Diagnosis/Problems (1) C. difficile colitis Status: Acute (2) Advanced dementia Status: Chronic Clinical Quality Measures DVT/VTE Risk/Contraindication: Risk Factor Score Per Nursin RFS Level Per Nursing on Admit: 4+=Very High JOHNATHON BHAKTA MD Mar 26, 2019 10:40 POS
[2019-03-26] MEDS: ENOXAPARIN 40 MG/0.4 ML (LOVENOX) SYR SQ SCH (11:36)
[2019-03-26 16:00] VITALS: BP 129/82
[2019-03-26] MEDS: MIRTAZAPINE 15 MG (REMERON) TAB PO SCH (19:59)
[2019-03-26] MEDS: MELATONIN 3 MG TABLET PO PRN (20:00)
[2019-03-27] VITALS: BP 118/69
[2019-03-27] MEDS: VANCOMYCIN ORAL 250 MG/5 ML 120 ML PO SCH ×10 (05:42→23:01)
[2019-03-27 08:00] VITALS: BP 135/70
[2019-03-27] MEDS: risperiDONE 0.25 MG (RisperDAL) TAB PO SCH ×2 (09:02→19:50)
[2019-03-27] MEDS: ENOXAPARIN 40 MG/0.4 ML (LOVENOX) SYR SQ SCH (10:53)
--- NOTE | 2019-03-27 12:02 | Progress Note - Hospitalist ---
Subjective HPI/CC On Admission Date Seen by Provider: Mar 27, 2019 Time Seen by Provider: 10:00 decreased responsiveness and bloody urine Subjective/Events-last exam He is sleeping but easily arousable. He denies pain. He has no complaints. Objective Exam Vital Signs Vital Signs Date Time Temp Pulse Resp B/P (MAP) Pulse Ox O2 Delivery O2 Flow Rate FiO2 03/27/19 08:00 97 Room Air 03/27/19 08:00 36.3 74 18 135/70 (91) 03/26/19 20:00 2.50 03/24/19 14:24 21 Capillary Refill : Less Than 3 SecondsLess Than 3 Seconds General Appearance: No Apparent Distress, Chronically ill, Thin Respiratory: Lungs Clear, Normal Breath Sounds, No Respiratory Distress Cardiovascular: Regular Rate, Rhythm, No Edema, No Murmur Gastrointestinal: Normal Bowel Sounds, Non Tender, Soft Extremity: Normal Inspection, Non Tender, No Pedal Edema Neurologic/Psychiatric: Other (sleeping, easily arousable) Skin: Normal Color, Warm/Dry Results/Procedures Lab Patient resulted labs reviewed. Assessment/Plan Assessment and Plan Assess & Plan/Chief Complaint C diff infection -Diarrhea resolved -Continue oral vancomycin -Plan to discharge to [facility] on Thursday Dementia -High risk for delirium -Reorient as needed Proteus UTI, resolved -Received antibiotic course DVT Prophylaxis: Lovenox Diagnosis/Problems Diagnosis/Problems (1) C. difficile colitis Status: Acute (2) Advanced dementia Status: Chronic Clinical Quality Measures DVT/VTE Risk/Contraindication: Risk Factor Score Per Nursin RFS Level Per Nursing on Admit: 4+=Very High JOHNATHON BHAKTA MD Mar 27, 2019 12:02 POS
[2019-03-27 14:56] VITALS: BP 135/70
[2019-03-27 16:00] VITALS: BP 116/76
[2019-03-27] MEDS: MIRTAZAPINE 15 MG (REMERON) TAB PO SCH (19:50)
[2019-03-27] MEDS: MELATONIN 3 MG TABLET PO PRN (19:50)
[2019-03-28 00:32] VITALS: BP 137/80
[2019-03-28] MEDS: VANCOMYCIN ORAL 250 MG/5 ML 120 ML PO SCH ×6 (05:47→11:11)
[2019-03-28] MEDS: risperiDONE 0.25 MG (RisperDAL) TAB PO SCH (07:45)
[2019-03-28 08:00] VITALS: BP 123/84
--- NOTE | 2019-03-28 08:47 | Discharge Summary ---
Diagnosis/Chief Complaint Date of Admission Mar 19, 2019 at 19:37 Date of Discharge Discharge Date: Mar 24, 2019 Admission Diagnosis Severe Sepsis Primary Care Sean Bess DO Discharge Diagnosis (1) C. difficile colitis Status: Acute (2) Advanced dementia Status: Chronic Discharge Summary Discharge Physical Exam Allergies: Coded Allergies: No Known Drug Allergies (Unverified , 03/19/19) Vitals & I&Os Vital Signs Date Time Temp Pulse Resp B/P (MAP) Pulse Ox O2 Delivery O2 Flow Rate FiO2 03/28/19 08:00 35.4 65 16 123/84 (97) 95 Room Air 03/26/19 20:00 2.50 03/24/19 14:24 21 Hospital Course Was the Problem List Reviewed?: Yes Labs (last 24 hrs) Microbiology 03/19/19 Blood Culture - Final, Complete No growth 03/22/19 C. difficile DNA Amplification - Final, Complete 03/22/19 C. difficile GDH Antigen & Toxins - Final, Complete 03/19/19 Urine Culture - Final, Complete Proteus mirabilis Patient resulted labs reviewed. Discussion & Recommendations Discharge Planning: <30 minutes discharge planning Discharge Home Medications: Active Scripts Active Vancomycin ORAL Compound 250mg/5 ml (Vancomycin HCl) 125 Mg/2.5 Ml Syringe 125 Mg PO QID 7 Days Reported Melatonin 5 mg Tablet (Melatonin/Pyridoxine) 1 Each Tablet 1 Each PO HS [Therapym Beta Carot] 9,400 Tab 1 PO DAILY Lorazepam 0.5 Mg Tablet 0.5 Mg PO BID PRN Vitamin D (Cholecalciferol (Vitamin D3)) 1,000 Unit Tablet 2,000 Units PO DAILY [id number] (Polyethylene Glycol 3350) 238 Gm Powder 17 Gm PO DAILY Acid Nitro Worker (FAMOTIDINE) (Famotidine) 20 Mg Tablet 20 Mg PO HS Metoprolol Tartrate 25 Mg Tablet 12.5 Mg PO BID TAKES HALF OF A 25MG TAB TO EQUAL 12.5MG TWICE DAILY Senna Plus Tablet (Sennosides/Docusate Sodium) 1 Each Tablet 1 Tab PO BID Mirtazapine 15 Mg Tablet 15 Mg PO HS Divalproex Sodium ER (Divalproex Sodium) 500 Mg Tab.er.24h 500 Mg PO HS Risperidone 0.25 Mg Tablet 0.25 Mg PO TID Hydrochlorothiazide 12.5 Mg Capsule 12.5 Mg PO DAILY Terazosin HCl 2 Mg Capsule 2 Mg PO HS Aspirin EC (Aspirin) 81 Mg Tablet. 81 Mg PO DAILY Acetaminophen 325 Mg Tablet 650 Mg PO Q8H Verapamil HCl 120 Mg Tablet 60 Mg PO BID Instructions to patient/family Please see electronic discharge instructions given to patient. Clinical Quality Measures DVT/VTE Risk/Contraindication: Risk Factor Score Per Nursin RFS Level Per Nursing on Admit: 4+=Very High LIDIA IZQUIERDO MD Mar 28, 2019 08:47 POS
--- NOTE | 2019-03-28 09:28 | Discharge Inst-Simple/Standard ---
Discharge Inst-Standard Reconcile Patient Problems Problems Reviewed?: Yes Patient Instructions/Follow Up Plan of Care/Instructions/FU: Please continue to take your medications as written. Please follow up with Dr Bess in the next week. Activity as Tolerated: Yes Discharge Diet: Semi-Solid Diet Health Concerns: No longer needs isolation as has had formed stools. Continue on Bravo Vanc as written. LIDIA IZQUIERDO MD Mar 28, 2019 09:27 POS
--- NOTE | 2019-03-28 10:19 | NUR ---
DISCHARGE PLANNING: Patient is ready for discharge today back to his previous home at [facility]. He has had formed stools for over 48 hours and is no longer needing isolation. Spoke with nurse from [facility] and updated her. Clinical information and discharge orders faxed, with confirmation of receipt. No other needs at this time. Addendum: 03/28/19 at 1030 by LIZZIE CABEZAS RN EMS will bee needed for transport, he is rigid and unable to get into chair.
[2019-03-28] MEDS: ENOXAPARIN 40 MG/0.4 ML (LOVENOX) SYR SQ SCH (11:11)
[2019-03-28 11:50] VITALS: BP 123/84
== END 2019-03-28 11:58 | DRG 871 ==
LOC: ER FS 16:55 → 4TH 19:37
PROVIDERS: ADMIT Family Medicine; ATTEND Family Medicine
DX: A41.9 Sepsis, unspecified organism (principal); R65.20 Severe sepsis without septic shock; N39.0 Urinary tract infection, site not specified; R40.20 Unspecified coma; R31.9 Hematuria, unspecified; I48.20 Chronic atrial fibrillation, unspecified; F03.90 Unspecified dementia, unspecified severity, without behavioral disturbance, psychotic disturbance, mood disturbance, and anxiety; A04.72 Enterocolitis due to Clostridium difficile, not specified as recurrent; Z66 Do not resuscitate; E03.9 Hypothyroidism, unspecified; I10 Essential (primary) hypertension; K59.09 Other constipation; R53.81 Other malaise; Z85.46 Personal history of malignant neoplasm of prostate; Z90.79 Acquired absence of other genital organ(s); Z79.82 Long term (current) use of aspirin
CPT/HCPCS: 36415; 51701; 70450; 71045; 80048; 80053; 80164; 81000; 83605; 84443; 85007; 85025; 85027; 87040; 87077; 87088; 87186; 87324; 87449; 87493; 93005; 94640; 94760; 96361; 96374; 96375

== ENCOUNTER 2019-05-08 14:32 | Emergency (ER) | payer MEDICARE, MEDICAID ==
[~2019-05-08] VITALS: Ht 182 cm; Wt 75.0 kg
[~2019-05-08 14:32] MED LIST: ACET325T49 PO; ASPI-983 PO; CHOL100045 PO; DIVA500T15 PO; FAMO20TA3 PO; HYDR12.5 PO; LORA0.5T PO; MELA1TAB15 PO; METO-333 PO; MIRT15TA6 PO; POLY238P32 PO; RISP0.253 PO; SENN-233 PO; TERA2CAP4 PO; VANC125S PO; VERA120T6 PO; [UNRECOGNIZED DRUG - OTHER] PO
[2019-05-08 15:44] VITALS: BP 117/65
[2019-05-08 17:30] LABS: BILIRUBIN,URINE NEGATIVE (NEGATIVE); CLARITY,URINE CLEAR; COLOR,URINE YELLOW; GLUCOSE, URINE (UA) NEGATIVE (NEGATIVE); KETONES,URINE NEGATIVE (NEGATIVE); LEUKOCYTE ESTERASE ,URINE NEGATIVE (NEGATIVE); NITRITE,URINE NEGATIVE (NEGATIVE); PROTEIN,URINE NEGATIVE (NEGATIVE)
--- NOTE | 2019-05-08 17:35 | ED GU-Female ---
General Chief Complaint: - Urinary Stated Complaint: POSS UTI AND CDIFF Nursing Triage Note: ARRIVED VIA TO TRIAGE. WAS ADMITTED A WEEK AGO FOR A UTI AND C-DIFF AND THINKS HE HAS IT AGAIN. Nursing Sepsis Screen: No Definite Risk Source: patient, spouse () Exam Limitations: physical impairment (dementia) History of Present Illness Date Seen by Provider: May 08, 2019 Time Seen by Provider: 17:34 Initial Comments 78-year-old male patient presents with with reports of a recent urinary tract infection and C. difficile infection. Patient was admitted to [facility] for treatment last week. states she was contacted by the [facility] staff with reports of patient having 2 loose stools with mucus yesterday and 1 today. Denies fever, vomiting, rectal bleeding, or black stools. She states the patient has been eating and drinking without difficulty. Nursing facility contacted the and told her that the patient could not return to the facility until he tested negative for C. difficile b/c he has a roommate. S he was told to take him to the emergency department until he could be cleared of the C. difficile infection. Timing/Duration: yesterday, intermittent Severity/Quality: mild Activities at Onset: none Prior Genitourinary Problems: similar symptoms Allergies and Home Medications Allergies Coded Allergies: No Known Drug Allergies (Unverified , 03/19/19) Home Medications Acetaminophen 325 Mg Tablet, 650 MG PO Q8H, (Reported) Aspirin 81 Mg Tablet.dr, 81 MG PO DAILY, (Reported) Cholecalciferol (Vitamin D3) 1,000 Unit Tablet, 2,000 UNITS PO DAILY, (Reported) Divalproex Sodium 500 Mg Tab.er.24h, 500 MG PO HS, (Reported) Famotidine 20 Mg Tablet, 20 MG PO HS, (Reported) Hydrochlorothiazide 12.5 Mg Capsule, 12.5 MG PO DAILY, (Reported) Lorazepam 0.5 Mg Tablet, 0.5 MG PO BID PRN for ANXIETY, (Reported) Melatonin/Pyridoxine 1 Each Tablet, 1 EACH PO HS, (Reported) Metoprolol Tartrate 25 Mg Tablet, 12.5 MG PO BID, (Reported) TAKES HALF OF A 25MG TAB TO EQUAL 12.5MG TWICE DAILY Mirtazapine 15 Mg Tablet, 15 MG PO HS, (Reported) Polyethylene Glycol 3350 238 Gm Powder, 17 GM PO DAILY, (Reported) Risperidone 0.25 Mg Tablet, 0.25 MG PO TID, (Reported) Sennosides/Docusate Sodium 1 Each Tablet, 1 TAB PO BID, (Reported) Terazosin HCl 2 Mg Capsule, 2 MG PO HS, (Reported) Vancomycin HCl 125 Mg/2.5 Ml Syringe, 125 MG PO QID Prescribed by: HAI CROWLEY on 03/24/19 0847 Verapamil HCl 120 Mg Tablet, 60 MG PO BID, (Reported) [Therapym Beta Carot] 9,400 TAB, 1 PO DAILY, (Reported) Patient Home Medication List Home Medication List Reviewed: Yes Review of Systems Review of Systems Constitutional: No fever Respiratory: No cough Gastrointestinal: see HPI; No abdominal pain, No constipation; diarrhea (loose stools with mucus.); No vomiting Genitourinary: no symptoms reported Review of systems per patient's . Patient unable to answer review of systems due to dementia All Other Systemes Reviewed Negative Unless Noted: Yes (Negative excepted noted.) Past Llicuig-Hvjcrh-Qqskgr Hx Past Med/Social Hx: Reviewed Nursing Past Med/Soc Hx Patient Social History Alcohol Use: Denies Use Recreational Drug Use: No Smoking Status: Former Smoker Recent Foreign Travel: No Contact w/Someone Who Travel: No Recent Infectious Disease Expo: No Recent Hopitalizations: No Physical Abuse: No Sexual Abuse: No Mistreated: No Fear: No Immunizations Up To Date Date of Pneumonia Vaccine: May 19, 2018 Date of Influenza Vaccine: Mar 11, 2019 Seasonal Allergies Seasonal Allergies: No Past Medical History Surgeries: No (unknown past surgical hx, poor historian) Prostatectomy Respiratory: No (unknown, poor historian) Cardiac: Yes (Chronic A Fib) Atrial Fibrillation Neurological: Yes (Advanced dementia) Dementia Genitourinary: Yes (Incontinent, wears brief) Gastrointestinal: Yes ( is poor historian, nutritional issues with dementia) Chronic Constipation Musculoskeletal: No ( is poor historian) Endocrine: Yes Hypothyroidsim HEENT: No ( is poor historian) Cancer: No ( is poor historian) Prostate Psychosocial: No Integumentary: No ( poor historian) Blood Disorders: No Family Medical History Reviewed Nursing Family Hx No Pertinent Family Hx Physical Exam Vital Signs Vital Signs - First Documented 05/08/19 14:50 Temp 36.2 Pulse 112 Resp 16 B/P (MAP) 92/64 (73) Pulse Ox 99 O2 Delivery Room Air Capillary Refill : Less Than 3 Seconds Height, Weight, BMI Height: '" Weight: lbs. oz. kg; 22.00 BMI Method: General Appearance: WD/WN, no apparent distress HEENT: PERRL/EOMI, pharynx normal Cardiovascular: normal peripheral pulses, regular rate, rhythm, no edema, no gallop, no murmur Respiratory: lungs clear, normal breath sounds, no respiratory distress, no accessory muscle use Gastrointestinal: normal bowel sounds, non tender, soft, no organomegaly; No distended Back: normal inspection, no CVA tenderness Extremities: no pedal edema, normal capillary refill Neurologic/Psychiatric: alert, normal mood/affect, other (oriented to self) Skin: normal color, warm/dry Progress/Results/Core Measures Suspected Sepsis Recent Fever Within 48 Hours: No Infection Criteria Present: Suspected New Infection New/Unexplained Altered Menta: No Sepsis Screen: No Definite Risk SIRS Temperature: Pulse: 89 Respiratory Rate: 16 Blood Pressure 117 /65 Mean: 82 Results/Orders Lab Results Laboratory Tests Test 05/08/19 17:14 Range/Units Urine Color YELLOW Urine Clarity CLEAR Urine pH 6.0 5-9 Urine Specific [place] 1.020 1.016-1.022 Urine Protein NEGATIVE NEGATIVE Urine Glucose (UA) NEGATIVE NEGATIVE Urine Ketones NEGATIVE NEGATIVE Urine Nitrite NEGATIVE NEGATIVE Urine Bilirubin NEGATIVE NEGATIVE Urine Urobilinogen 0.2 < = 1.0 MG/DL Urine Leukocyte Esterase NEGATIVE NEGATIVE Urine RBC (Auto) 1+ H NEGATIVE Urine RBC 5-10 H /HPF Urine WBC NONE /HPF Urine Squamous Epithelial Cells RARE /HPF Urine Crystals NONE /LPF Urine Bacteria TRACE /HPF Urine Casts PRESENT /LPF Urine Hyaline Casts RARE /LPF Urine Mucus SMALL H /LPF Urine Culture Indicated NO Vital Signs/I&O 05/08/19 05/08/19 05/08/19 14:50 15:44 19:10 Temp 36.2 36.2 Pulse 112 89 89 Resp 16 16 16 B/P (MAP) 92/64 (73) 117/65 (82) 120/71 (82) Pulse Ox 99 92 97 O2 Delivery Room Air Room Air Room Air Capillary Refill : Less Than 3 Seconds Blood Pressure Mean: 82 Departure Communication (Admissions) Urinalysis obtained without findings of a urinary tract infection. Patient was monitored in the emergency department for approximately 4 hours without nausea, vomiting, diarrhea. No bowel movements noted throughout the entire visit. Patient case discussed with Dr. Pepper. He agrees with discharging patient to [facility] with follow-up as an outpatient with Dr. ARENAS. Laboratory findings and plan for discharge discussed with the patient's . Patient's verbalizes understanding and agrees with the treatment plan. ED visit uneventful. Impression Primary Impression: Well adult exam Additional Impression: History of Clostridium difficile infection Disposition: XFER SNF ([facility] in [facility]) Condition: Stable Departure-Patient Inst. Decision time for Depature: 18:53 Referrals: CACHORRO ARENAS DO (PCP/Family) Primary Care Physician Patient Instructions: Clostridium difficile (DC) Add. Discharge Instructions: All discharge instructions reviewed with patient and/or family. Voiced understanding. Stool Cultures as an outpatient. . Continue usual medications and orders. Follow-up with Dr. ARENAS this week as an outpatient for recheck and for follow-up of stool culture results. Return to the emergency department for fever, abdominal pain, vomiting, bloody stools, vomiting, swelling, or any other concerns. OLIVIA MATOS May 08, 2019 17:34
[2019-05-08 17:37] LABS: BACTERIA,URINE TRACE /HPF; HYALINE CASTS, URINE RARE /LPF; SQUAMOUS EPITHELIAL CELL,UR RARE /HPF
[2019-05-08 19:10] VITALS: BP 120/71
== END 2019-05-08 19:11 ==
LOC: EDUNIT# 14:32 → ER 14:33
DX: Z03.89 Encounter for observation for other suspected diseases and conditions ruled out (principal); I48.91 Unspecified atrial fibrillation; F03.90 Unspecified dementia, unspecified severity, without behavioral disturbance, psychotic disturbance, mood disturbance, and anxiety; E03.9 Hypothyroidism, unspecified; Z85.46 Personal history of malignant neoplasm of prostate; Z87.440 Personal history of urinary (tract) infections; Z86.19 Personal history of other infectious and parasitic diseases; Z79.82 Long term (current) use of aspirin; Z87.891 Personal history of nicotine dependence
CPT/HCPCS: 81000; 99282